=== PATIENT | male | born 1970 | race Caucasian/White ===

== ENCOUNTER 2017-01-16 22:56 | Emergency (ER) | payer OTHER ==
[2017-01-16 23:08] VITALS: BP 141/87
[2017-01-16] MEDS ORDERED: Sodium Chloride 0.9% 1,000 ML IV STA (23:14)
[2017-01-16] MEDS ORDERED: Ondansetron 4 MG/2 ML SDV IVPUSH ONE (23:14)
[2017-01-16] MEDS ORDERED: Sodium Chloride 0.9% 10 ML Syringe FLUSH PRN (23:14)
[2017-01-16] MEDS ORDERED: HYDROmorphone 1 MG/ML Syringe IVPUSH ONE (23:15)
--- NOTE | 2017-01-16 23:24 | EDM.PDOC ---
ED HPI GENERAL MEDICAL PROBLEM - General Chief Complaint: Abdominal Pain Stated Complaint: ABDOMINAL PAIN Time Seen by Provider: 01/16/17 23:07 Source of Information: Reports: Patient History Limitations: Reports: No Limitations - History of Present Illness INITIAL COMMENTS - FREE TEXT/NARRATIVE: The patient presents with RUQ abdominal pain. He says this started about 10am this morning and it has gotten worse. Tonight after eating it became way worse. He last ate about 2 hours ago. He has no nausea or vomiting. He has no diarrhea, fever or chills. He has no chest pain or shortness of breath. He has a gallbladder but no appendix. That was removed a few years ago when it ruptured. Onset: Gradual Duration: Hour(s): (since 10am this morning) Location: Reports: Abdomen Quality: Reports: Sharp Severity: Severe Improves with: Reports: None Worsens with: Reports: Eating Associated Symptoms: Reports: Nausea/Vomiting. Denies: Chest Pain, Cough, Fever /Chills, Shortness of Breath Right Upper Abdomen Pain Score (Numeric/FACES): 7 - Related Data Allergies Allergy/AdvReac Type Severity Reaction Status Date / Time No Known Allergies Allergy Verified 01/16/17 23:09 Home Meds: Home Meds Lisinopril [Zestril] 1 tab PO DAILY 01/16/17 [History] Hydrocodone/Acetaminophen [Hydrocodon-Acetaminophen 5-325] 1 - 2 each PO Q6HR PRN #20 tablet 01/17/17 [Rx] Omeprazole Magnesium [Prilosec Otc] 20 mg PO DAILY #14 tablet. 01/17/17 [Rx] Past Medical History Cardiovascular History: Reports: High Cholesterol, Hypertension Neurological History: Reports: Migraines Social & Family History - Tobacco Use Smoking Status *Q: Never Smoker Second Hand Smoke Exposure: No - Caffeine Use Caffeine Use: Reports: None - Alcohol Use Date of Last Drink: 01/16/17 Time of Last Drink: 21:00 - Recreational Drug Use Recreational Drug Use: No ED ROS GENERAL - Review of Systems Review Of Systems: See Below Constitutional: Reports: No Symptoms HEENT: Reports: No Symptoms Respiratory: Reports: No Symptoms Cardiovascular: Reports: No Symptoms Endocrine: Reports: No Symptoms GI/Abdominal: Reports: Abdominal Pain. Denies: Diarrhea, Nausea, Vomiting : Reports: No Symptoms Musculoskeletal: Reports: No Symptoms Skin: Reports: No Symptoms ED EXAM, GI/ABD - Physical Exam Exam: See Below Exam Limited By: No Limitations General Appearance: Alert, No Apparent Distress Ears: Normal External Exam Nose: Normal Inspection Head: Atraumatic, Normocephalic Neck: Normal Inspection Respiratory/Chest: No Respiratory Distress, Lungs Clear, Normal Breath Sounds Cardiovascular: Regular Rate, Rhythm, No Edema, No Murmur GI/Abdominal: Soft, No Organomegaly, No Mass, Tenderness (Moderate to the RUQ) Extremities: Normal Inspection Course - Vital Signs Last Recorded V/S: Last Vital Signs Temp 97.9 F 01/16/17 23:04 Pulse 103 H 01/16/17 23:04 Resp 20 01/16/17 23:04 BP 141/87 H 01/16/17 23:04 Pulse Ox 96 01/16/17 23:04 - Orders/Labs/Meds Orders: Active Orders 24 hr Category Date Time Status Peripheral IV Care [RC] . DIRECTED Care 01/16/17 23:14 Active Abdomen Pelvis w Cont [CT] Stat Exams 01/17/17 00:00 Taken Sodium Chloride 0.9% [Normal Saline] 1,000 ml Med 01/17/17 00:45 Active IV ASDIRECTED Sodium Chloride 0.9% [Saline Flush] Med 01/16/17 23:14 Active 10 ml FLUSH ASDIRECTED PRN ED Antiemetic Medication Reflex [OM.PC] Stat Oth 01/16/17 23:15 Ordered Peripheral IV Insertion Adult [OM.PC] Stat Oth 01/16/17 23:14 Ordered Medication Orders Sodium Chloride (Normal Saline) 1,000 mls @ 150 mls/hr IV ASDIRECTED EMMA Last Admin: 01/17/17 00:44 Dose: 150 mls/hr Sodium Chloride (Saline Flush) 10 ml FLUSH ASDIRECTED PRN PRN Reason: Keep Vein Open Last Admin: 01/16/17 23:30 Dose: 10 ml Labs: Laboratory Tests 01/16/17 01/16/17 01/16/17 Range/Units 23:17 23:17 23:40 WBC 6.81 (4.23-9.07) K/mm3 RBC 5.59 (4.63-6.08) M/mm3 Hgb 17.1 (13.7-17.5) gm/L Hct 49.8 (40.1-51.0) % MCV 89.1 (79.0-92.2) fl MCH 30.6 (25.7-32.2) pg MCHC 34.3 (32.2-35.5) g/dl RDW Std Deviation 44.6 H (35.1-43.9) fL Plt Count 222 (163-337) K/mm3 MPV 10.6 (9.4-12.3) fl Neut % (Auto) 64.3 (34.0-67.9) % Lymph % (Auto) 26.3 (21.8-53.1) % Major % (Auto) 7.6 (5.3-12.2) % Eos % (Auto) 1.6 (0.8-7.0) Baso % (Auto) 0.1 (0.1-1.2) % Neut # (Auto) 4.37 (1.78-5.38) K/mm3 Lymph # (Auto) 1.79 (1.32-3.57) K/mm3 Major # (Auto) 0.52 (0.30-0.82) K/mm3 Eos # (Auto) 0.11 (0.04-0.54) K/mm3 Baso # (Auto) 0.01 (0.01-0.08) K/mm3 Sodium 143 (136-145) mEq/L Potassium 3.8 (3.5-5.1) mEq/L Chloride 108 H (98-107) mEq/L Carbon Dioxide 22 (21-32) mEq/L Anion Gap 16.8 H (5-15) BUN 10 (7-18) mg/dL Creatinine 1.2 (0.7-1.3) mg/dL Est Cr Clr Drug Dosing 78.58 mL/min Estimated GFR (MDRD) > 60 (>60) mL/min BUN/Creatinine Ratio 8.3 L (14-18) Glucose 105 (74-106) mg/dL Calcium 8.9 (8.5-10.1) mg/dL Total Bilirubin 0.5 (0.2-1.0) mg/dL AST 22 (15-37) U/L ALT 29 (16-63) U/L Alkaline Phosphatase 58 (46-116) U/L Total Protein 7.7 (6.4-8.2) g/dl Albumin 3.8 (3.4-5.0) g/dl Globulin 3.9 gm/dL Albumin/Globulin Ratio 1.0 (1-2) Lipase 323 (73-393) U/L Urine Color Yellow (Yellow) Urine Appearance Clear (Clear) Urine pH 6.5 (5.0-8.0) Ur Specific Success 1.010 (1.005-1.030) Urine Protein Negative (Negative) Urine Glucose (UA) Negative (Negative) Urine Ketones Negative (Negative) Urine Occult Blood Negative (Negative) Urine Nitrite Negative (Negative) Urine Bilirubin Negative (Negative) Urine Urobilinogen 0.2 (0.2-1.0) Ur Leukocyte Esterase Negative (Negative) Urine RBC Not seen (0-5) /hpf Urine WBC 0-5 (0-5) /hpf Ur Epithelial Cells Not Reportable Ur Squamous Epith Cells 0-5 (0-5) /hpf Urine Bacteria Not seen (FEW) /hpf Urine Mucus Not seen (FEW) /hpf Meds: Medications Generic Name Dose Route Start Last Admin Trade Name Raj PRN Reason Stop Dose Admin Sodium Chloride 1,000 mls @ 150 mls/hr 01/17/17 00:45 01/17/17 00:44 Normal Saline IV 150 mls/hr ASDIRECTED EMMA Administration Sodium Chloride 10 ml 01/16/17 23:14 01/16/17 23:30 Saline Flush FLUSH 10 ml ASDIRECTED PRN Administration Keep Vein Open Discontinued Medications Generic Name Dose Route Start Last Admin Trade Name Raj PRN Reason Stop Dose Admin Famotidine 20 mg 01/17/17 00:00 01/17/17 00:08 Pepcid IVPUSH 01/17/17 00:01 20 mg ONETIME ONE Administration Hydromorphone HCl 1 mg 01/16/17 23:15 01/16/17 23:28 Dilaudid IVPUSH 01/16/17 23:16 1 mg ONETIME ONE Administration Hydromorphone HCl 0.5 mg 01/17/17 00:00 01/17/17 00:10 Dilaudid IVPUSH 01/17/17 00:01 0.5 mg ONETIME ONE Administration Hydromorphone HCl 1 mg 01/17/17 00:50 01/17/17 00:53 Dilaudid IVPUSH 01/17/17 00:51 1 mg ONETIME ONE Administration Sodium Chloride 1,000 mls @ 1,000 mls/hr 01/16/17 23:14 01/16/17 23:27 Normal Saline IV 01/17/17 00:13 1,000 mls/hr .BOLUS STA Administration Ondansetron HCl 4 mg 01/16/17 23:14 01/16/17 23:28 Zofran IVPUSH 01/16/17 23:15 4 mg ONETIME ONE Administration - Re-Assessments/Exams Free Text/Narrative Re-Assessment/Exam: 01/16/17 23:24 I ordered an IV NS 1L bolus, zofran 4mg IV, dilaudid 1mg IV, labs and UA. 01/17/17 00:02 His CBC and CMP look good. His lipase is negative. His UA shows no UTI. I did a bedside US and I do not see any stones. I have ordered a CT of his abdomen and pelvis, dilaudid 0.5mg IV and some pepcid 20mg IV. 01/17/17 01:37 He had more pain so I ordered more dilaudid. His CT came back negative for any acute intra-abdominal pathology. I will get him a prescription for prilosec and some thing for pain. Departure - Departure Time of Disposition: 01:40 Disposition: Home, Self-Care 01 Condition: good Clinical Impression: Abdominal pain Qualifiers: Abdominal location: right upper quadrant Qualified Code(s): R10.11 - Right upper quadrant pain - Discharge Information Prescriptions: Hydrocodone/Acetaminophen [Hydrocodon-Acetaminophen 5-325] 1 - 2 each PO Q6HR PRN #20 tablet PRN Reason: Pain Omeprazole Magnesium [Prilosec Otc] 20 mg PO DAILY #14 tablet.dr Referrals: Chau Sanchez MD [Physician] - 1 Week Forms: ED Department Discharge Additional Instructions: Take the prilosec daily for 2 weeks. Take the hydrocodone as needed for pain. Follow up with Dr Sanchez in 1 week. Please return if you are worse. Avoid spicy food and fatty fried food. - My Orders Last 24 Hours: My Active Orders 01/16/17 23:14 Peripheral IV Care [RC] . DIRECTED Sodium Chloride 0.9% [Saline Flush] 10 ml FLUSH ASDIRECTED PRN Peripheral IV Insertion Adult [OM.PC] Stat 01/16/17 23:15 ED Antiemetic Medication Reflex [OM.PC] Stat 01/17/17 00:00 Abdomen Pelvis w Cont [CT] Stat 01/17/17 00:45 Sodium Chloride 0.9% [Normal Saline] 1,000 ml IV ASDIRECTED - Assessment/Plan Last 24 Hours: My Active Orders 01/16/17 23:14 Peripheral IV Care [RC] . DIRECTED Sodium Chloride 0.9% [Saline Flush] 10 ml FLUSH ASDIRECTED PRN Peripheral IV Insertion Adult [OM.PC] Stat 01/16/17 23:15 ED Antiemetic Medication Reflex [OM.PC] Stat 01/17/17 00:00 Abdomen Pelvis w Cont [CT] Stat 01/17/17 00:45 Sodium Chloride 0.9% [Normal Saline] 1,000 ml IV ASDIRECTED
[2017-01-17] MEDS ORDERED: HYDROmorphone 0.5 MG/0.5 ML Syringe IVPUSH ONE
[2017-01-17] MEDS ORDERED: Famotidine 20 MG/2 ML SDV IVPUSH ONE
[2017-01-17] MEDS ORDERED: Sodium Chloride 0.9% 1,000 ML IV SCH (00:45)
[2017-01-17] MEDS ORDERED: HYDROmorphone 1 MG/ML Syringe IVPUSH ONE (00:50)
--- NOTE | 2017-01-17 06:51 | CT ---
CT abdomen and pelvis Technique: Multiple axial sections were obtained from the top of the liver inferiorly through the pubic symphysis. Intravenous and oral contrast was utilized. Comparison: No previous CT exam is available. Findings: Small portion of the visualized lung bases are clear. Three low-density lesions are identified within the liver. These are felt compatible with cysts with largest measuring approximately 1.5 cm and smaller being 6 mm. Third small lesion is also identified next to the gallbladder presumably due to additional cyst measuring 1 cm. Spleen appears within normal limits. Adrenal glands show no nodule. Pancreas is within normal limits. Kidneys show symmetric contrast enhancement without hydronephrosis or mass. Aorta shows no aneurysmal dilatation. No retroperitoneal adenopathy or mesenteric abnormalities are seen. Surgical clips seen within the right lower abdomen. Mild diverticuli seen within sigmoid colon. No pelvic mass or adenopathy is seen. No free fluid or inflammatory change is identified. Delayed images show contrast within the ureters and bladder. No evidence of a ureteral obstruction is seen. Bone window settings show degenerative change most prominent at L5-S1 with disc space narrowing and vacuum phenomena with a small amount of epidural air compatible with annular rupture. Impression: 1. Incidental findings. No acute intra-abdominal anomaly is seen. Diagnostic code #3 I agree with preliminary report issued by [facility] ([facility] preliminary report dictated on 01/17/17, 2:31 AM Central Time)
== END 2017-01-17 02:02 | disposition home or self-care (01) ==
LOC: JD.ED 22:56
DX: R10.11 Right upper quadrant pain (principal); I10 Essential (primary) hypertension; E78.00 Pure hypercholesterolemia, unspecified; G43.909 Migraine, unspecified, not intractable, without status migrainosus; Z79.899 Other long term (current) drug therapy
CPT/HCPCS: 36415; 74177; 80053; 81001; 83690; 85025; 96361; 96374; 96375; 96376; 99284; J1170; J2405; J7040; J7050